=== PATIENT | female | born 1965 | race Caucasian/White ===

== ENCOUNTER 2016-09-12 20:27 | Emergency (ER) | payer OTHER ==
--- NOTE | 2016-09-12 21:29 | ED NURSING NOTES ---
Clinical Report - Nurses [facility] [place] [address] 09/12/2016 20:28 Patient: CONI BLANC TRIAGE Triage time 20:33. Acuity: LEVEL 5. Chief Complaint: (surgical wound check). KEM COMA SCORE: Kem Coma Scale: 15- eyes open spontaneously (4); best verbal response- oriented x 4 (5); best motor response- obeys commands (6). --20:43 Froilan Rivas R.N. 20:33 09/12/16. BP: 149/88. HR: 94. RR: 20 (unlabored). O2 saturation: 94% on room air. Temp: 98.8 F. Pain level now: 510. --20:43 Froilan Rivas R.N. Weight: 82.1 kg stated. Height/Length: 64 inches Per Patient. BMI: 31.1. --20:35 Froilan Rivas R.N. Medications Depakote Oral. Mirapex Oral. Tramadol HCL Oral. --20:37 Froilan Rivas R.N. Baclofen Oral. --20:38 Froilan Rivas R.N. Allergies ASA. Morphine Sulfate. PCN. --20:37 Froilan Rivas R.N. Sulfa Antibiotics. --20:38 Froilan Rivas R.N. History Arrived by private vehicle. Historian: patient. Accompanied by friend. Location of injuries: pelvis. This occurred today. ( pt states having umbilical hernia repair this AM, and is concerned about sanguineous drainage). PAST MEDICAL HX: Tetanus status: unknown. SOCIAL HX: History of drug use: marijuana. --20:43 Froilan Rivas R.N. PROBLEMS: Chronic Back Pain. Asthma. Restless Legs Syndrome. Fibromyalgia. Degenerative Joint Disease. --20:40 Froilan Rivas R.N. ADDITIONAL SURGERIES: Adenoidectomy. Back Surgery. Cholecystectomy. Hernia Repair. Tonsillectomy. Tubal Ligation. --20:40 Froilan Rivas R.N. Interventions ID and allergy band on patient. To treatment room. --20:43 Froilan Rivas R.N. PHYSICAL ASSESSMENT GENERAL / NEURO / PSYCH: Alert. Appears in no acute distress. RESPIRATORY: Respirations not labored. CVS: Capillary refill less than 2 seconds. GI / : Abdomen soft. ( pt has a closed umbilical surgical incision that she says came from a hernia repair performed this morning, its edges are currently approximated and scant drainage is present. bandage currently in place on surgical site. Patient repeated touching and caressing area.). EXTREMITIES: Extremities exhibit normal ROM. SKIN: Skin is warm and dry. --20:45 Froilan Rivas R.N. NURSING PROGRESS NOTES Bleeding controlled. Patient gowned. Reassurance given. Applied dressing consisting of 4x4 gauze. Secured with tape. GENERAL / NEURO / PSYCH: Alert. Oriented X 4. Two patient identifiers checked. Call light placed in reach. Side rails up x 1. Bed placed in lowest position. Brakes of bed on. Patient ready for evaluation- chart flagged. Patient waiting for evaluation. --20:46 Froilan Rivas R.N. Applied dressing consisting of Band-Aid and 4x4 gauze. --21:43 Glynn De Luna 21:45 09/12/2016 Percocet (Oxycodone-Acetaminophen) PO 5/325 mg Tablets 2 tab given. Allergies verified, confirmed 5 rights and sedative warning given to the patient and patient's brick wheeler. --21:49 Froilan Rivas R.N. DISPOSITION / DISCHARGE 21:45 09/12/16. RR: 18. Additional comments: pt alert and oriented, conversant and ambulates with difficulty. no change in pain from previous assessment. --21:51 Froilan Rivas R.N. ( dressings applied to wound by physician). --21:51 Froilan Rivas R.N. Condition at departure: stable. The goals identified in the patient's plan of care were met. No learning barriers present. Discharge instructions provided and reviewed with the patient. Reviewed warnings. Reviewed medication(s). Treatments reviewed. Reviewed referrals. Patient verbalized understanding. Written instructions provided in Nepali. The patient was discharged home and accompanied by brick wheeler. She left the Emergency Department ambulatory and via private vehicle. Eye Glass Frame Polisher driving. --21:52 Froilan Rivas R.N. Locked/Released at 09/12/2016 21:52 by Froilan Rivas R.N.
--- NOTE | 2016-09-12 21:29 | ED ORDER SUMMARY ---
..... Patient: CONI BLANC OrderSheet [facility] VisitID: [id number] [place] [address] 51y, F Registration Date/Time: 09/12/2016 ORDER SHEET Weight: 82.1 kg (stated) Allergies: ASA, Morphine Sulfate, PCN, Sulfa Antibiotics GENERAL ORDERS: Dress Wounds (gauze and bandaide) (21:29 09/12/2016 Torsten Smith) (21:42 SRedmond) MEDICATION ORDERS: Percocet PO 2 tabs (HIGH ALERT MEDICATION, NOW) (21:28 09/12/2016 Torsten Smith) (Cancelled: Physician Order21:44 Andrea Downing.NLeena) Percocet PO 10/650 mg (HIGH ALERT MEDICATION, NOW) (21:44 09/12/2016 Andrea Ocasio verbal order read back to Torsetn Smith) (21:49 Claribel ZavalaNLeena) IV FLUIDS: ORDER SHEET NOTES: [Electronically signed by Froilan Rivas R.N. (21:52 09/12/2016)] [Electronically signed by Arcadio Del Rosario Dr. (10:15 09/16/2016)] [Electronically locked/signed by Froilan Rivas R.N. (21:52 09/12/2016)]
--- NOTE | 2016-09-12 21:29 | ED NURSING NOTES ---
Clinical Report - Nurses [facility] [place] [address] 09/12/2016 20:28 Patient: CONI BLANC TRIAGE Triage time 20:33. Acuity: LEVEL 5. Chief Complaint: (surgical wound check). KEM COMA SCORE: Kem Coma Scale: 15- eyes open spontaneously (4); best verbal response- oriented x 4 (5); best motor response- obeys commands (6). --20:43 Froilan Rivas R.N. 20:33 09/12/16. BP: 149/88. HR: 94. RR: 20 (unlabored). O2 saturation: 94% on room air. Temp: 98.8 F. Pain level now: 510. --20:43 Froilan Rivas R.N. Weight: 82.1 kg stated. Height/Length: 64 inches Per Patient. BMI: 31.1. --20:35 Froilan Rivas R.N. Medications Depakote Oral. Mirapex Oral. Tramadol HCL Oral. --20:37 Froilan Rivas R.N. Baclofen Oral. --20:38 Froilan Rivas R.N. Allergies ASA. Morphine Sulfate. PCN. --20:37 Froilan Rivas R.N. Sulfa Antibiotics. --20:38 Froilan Rivas R.N. History Arrived by private vehicle. Historian: patient. Accompanied by friend. Location of injuries: pelvis. This occurred today. ( pt states having umbilical hernia repair this AM, and is concerned about sanguineous drainage). PAST MEDICAL HX: Tetanus status: unknown. SOCIAL HX: History of drug use: marijuana. --20:43 Froilan Rivas R.N. PROBLEMS: Chronic Back Pain. Asthma. Restless Legs Syndrome. Fibromyalgia. Degenerative Joint Disease. --20:40 Froilan Rivas R.N. ADDITIONAL SURGERIES: Adenoidectomy. Back Surgery. Cholecystectomy. Hernia Repair. Tonsillectomy. Tubal Ligation. --20:40 Froilan Rivas R.N. Interventions ID and allergy band on patient. To treatment room. --20:43 Froilan Rivas R.N. PHYSICAL ASSESSMENT GENERAL / NEURO / PSYCH: Alert. Appears in no acute distress. RESPIRATORY: Respirations not labored. CVS: Capillary refill less than 2 seconds. GI / : Abdomen soft. ( pt has a closed umbilical surgical incision that she says came from a hernia repair performed this morning, its edges are currently approximated and scant drainage is present. bandage currently in place on surgical site. Patient repeated touching and caressing area.). EXTREMITIES: Extremities exhibit normal ROM. SKIN: Skin is warm and dry. --20:45 Froilan Rivas R.N. NURSING PROGRESS NOTES Bleeding controlled. Patient gowned. Reassurance given. Applied dressing consisting of 4x4 gauze. Secured with tape. GENERAL / NEURO / PSYCH: Alert. Oriented X 4. Two patient identifiers checked. Call light placed in reach. Side rails up x 1. Bed placed in lowest position. Brakes of bed on. Patient ready for evaluation- chart flagged. Patient waiting for evaluation. --20:46 Froilan Rivas R.N. Applied dressing consisting of Band-Aid and 4x4 gauze. --21:43 Glynn De Luna 21:45 09/12/2016 Percocet (Oxycodone-Acetaminophen) PO 5/325 mg Tablets 2 tab given. Allergies verified, confirmed 5 rights and sedative warning given to the patient and patient's diesel powerplant mechanic helper. --21:49 Froilan Rivas R.N. DISPOSITION / DISCHARGE 21:45 09/12/16. RR: 18. Additional comments: pt alert and oriented, conversant and ambulates with difficulty. no change in pain from previous assessment. --21:51 Froilan Rivas R.N. ( dressings applied to wound by physician). --21:51 Froilan Rivas R.N. Condition at departure: stable. The goals identified in the patient's plan of care were met. No learning barriers present. Discharge instructions provided and reviewed with the patient. Reviewed warnings. Reviewed medication(s). Treatments reviewed. Reviewed referrals. Patient verbalized understanding. Written instructions provided in Ukrainian. The patient was discharged home and accompanied by diesel powerplant mechanic helper. She left the Emergency Department ambulatory and via private vehicle. Retail Advertising Executive driving. --21:52 Froilna Rivas R.N. Locked/Released at 09/12/2016 21:52 by Froilan Rivas R.N.
--- NOTE | 2016-09-12 21:29 | ED CLINICAL REPORT ---
Clinical Report - Physicians/Mid Levels [facility] [address] [place] [address] 09/12/2016 20:28 [id number] Time Seen: 20:30 Sep 12 2016. Arrived- By private vehicle. Historian- patient. HISTORY OF PRESENT ILLNESS Treated in emergency department (had elective cholecystectomy). Chief Complaint: RECHECK. The patient has experienced discharge since the procedure was performed (mild drainage from the wound. described as sero sang). Not previously treated in emergency department for laceration repair, Incision and Drainage of abscess or wound debridement. No prescription antibiotic given. Previous emergency department treatment: prescription given. (pain medication). (no fever or chills. No active bleeding. No increasing in pain. Has been passing flatus. No difficulty with urination.). REVIEW OF SYSTEMS No fever, nausea, vomiting, chest pain or difficulty breathing. All systems otherwise negative, except as recorded above. PAST HISTORY See nurses notes. Tetanus immunization status is up-to-date. Medications: Baclofen Oral. Depakote Oral. Mirapex Oral. Tramadol HCL Oral. Allergies: ASA. Morphine Sulfate. PCN. Sulfa Antibiotics. SOCIAL HISTORY Never smoker. History of occasional drug use: marijuana. No alcohol use. No recent travel. Is a local resident. ADDITIONAL NOTES The nursing notes have been reviewed. PHYSICAL EXAM Vital Signs: 09/12/2016 20:33 BP: 149/88. HR: 94. RR: 20. O2 saturation: 94%. Temp: 98.8 F. Pain level now: 5/10. Blood pressure normal. Oxygen saturation normal. Appearance: Alert. Oriented X3. No acute distress. Head: Head non-tender. No swelling of head. No Stuart's sign or raccoon eyes. Eyes: Pupils equal, round and reactive to light. EOM intact. Neck: Neck non-tender. Painless ROM. CVS: Heart sounds normal. Pulses normal. Respiratory: Breath sounds normal. Chest nontender. Abdomen: Soft. No organomegaly. (appropriately tender given recent surgery). Back: No tenderness. ROM normal. Skin: (Anterior abdominal wounds consistent with recent surgery. Wounds are clean dry and intact. No active bleeding. No evidence of infection. No crepitus. Tract tariq in the lower extremity bilaterally.). Extremities: Normal inspection. Extremities atraumatic. No lower extremity edema. Neuro, Vascular and Tendons: Sensation intact. No tendon injury. No vascular compromise. Neuro: Kem Coma Scale: 15- eyes open spontaneously (4); best verbal response- oriented x 3 (5); best motor response- obeys commands (6). No motor deficit. No sensory deficit. Reflexes normal. PROGRESS AND PROCEDURES Course of Care: the patient is a pleasant 51-year-old female presenting for evaluation of wound check. No signs of infection or wound dehiscence on examination. There was a concern from EMS about a patient that was injecting crushed up a lot of pills intravenously. Apparently patient had recent surgery performed. Appears to be consistent with the patient's appearance here in the emergency department as 30 minutes after he had received this call, the patient had checked into the emergency department. Tract tariq also noted in the lower extremities. Unclear if these are related however the coincidence is quite remarkable. Patient reports not having any pain medication as [facility] will not fill her prescription. Because the patient did have surgery recently, offered patient medications here in the emergency department. Do not feel comfortable with supplying patient with prescriptions for home use as the patient hard he does have prescribe narcotics. Expressed my concern with the findings on examination with the patient. Offered patient resources and help if she needs it. Patient states she will consider this. No signs of infection at this time. Vital signs are otherwise noted to be unremarkable. Do not feel patient requires further emergency department workup including laboratory studies or other interventions. Discussed the patient workup, diagnosis, home care, follow-up, and return precautions. All questions have been answered. The patient expressed understanding of these instructions and was agreeable to them. CLINICAL IMPRESSION Wound check (acute periumbilical). 09/12/2016 20:33 BP: 149/88. HR: 94. RR: 20. O2 saturation: 94%. Temp: 98.8 F. Pain level now: 5/10. Oxygen saturation normal. Essential hypertension. INSTRUCTIONS (Please take your medications as prescribed). Warnings: GENERAL WARNINGS: Return or contact your physician immediately if your condition worsens or changes unexpectedly, if not improving as expected, or if other problems arise. Specifically return if pain, vomiting, bleeding, breathing difficulty or fever. Your Current Medications: CONTINUE TAKING THE FOLLOWING MEDICATIONS: Baclofen Oral. Depakote Oral. Mirapex Oral. Tramadol HCL Oral. Follow-up: Return to the emergency department as needed. Follow up with your doctor as scheduled. Reason for referral: recheck today's concerns. Summary of care provided to patient via paper. Screening today revealed the patient's blood pressure to be in the normal range. The patient should follow up with a primary care provider for blood pressure management. Understanding of the discharge instructions verbalized by patient. (Electronically signed by Arcadio Del Rosario Dr. 09/16/2016 10:15)
--- NOTE | 2016-09-12 21:29 | ED ORDER SUMMARY ---
..... Patient: CONI BLANC OrderSheet [facility] VisitID: [id number] [place] [address] 51y, F Registration Date/Time: 09/12/2016 ORDER SHEET Weight: 82.1 kg (stated) Allergies: ASA, Morphine Sulfate, PCN, Sulfa Antibiotics GENERAL ORDERS: Dress Wounds (gauze and bandaide) (21:29 09/12/2016 Torsten Smith) (21:42 SRedmond) MEDICATION ORDERS: Percocet PO 2 tabs (HIGH ALERT MEDICATION, NOW) (21:28 09/12/2016 Torsten Smith) (Cancelled: Physician Order21:44 Andrea Downing.NLeena) Percocet PO 10/650 mg (HIGH ALERT MEDICATION, NOW) (21:44 09/12/2016 Andrea Ocasio verbal order read back to Torsten Smith) (21:49 Claribel ZavalaNLeena) IV FLUIDS: ORDER SHEET NOTES: [Electronically signed by Froilan Rivas R.N. (21:52 09/12/2016)] [Electronically signed by Arcadio Del Rosario Dr. (10:15 09/16/2016)] [Electronically locked/signed by Froilan Rivas R.N. (21:52 09/12/2016)]
--- NOTE | 2016-09-16 10:15 | ED MAR SUMMARY ---
..... Medication Administration Record [facility] [address] [place] [address] Patient: CONI BLANC Visit ID: [id number] 51y, F Weight: 82.1 kg Height/Length: 64 in BMI: 31.1 ALLERGIES: Sulfa Antibiotics, ASA, Morphine Sulfate, PCN Given 21:45 09/12/2016 Froilan Rivas R.N. Medication Administered: PERCOCET [PO] (OXYCODONE-ACETAMINOPHEN), Dose: 2 tab 5/325 mg Tablets PO. Medication Ordered: Percocet PO 10/650 mg (HIGH ALERT MEDICATION, NOW).
--- NOTE | 2016-09-16 10:15 | ED DISCHARGE INSTRUCTIONS ---
Patient: CONI BALNC General Instructions [facility] VisitID: [id number] [place] [address] 51y, F Registration Date/Time: 09/12/2016 Wound check (acute periumbilical). 09/12/2016 20:33 BP: 149/88. HR: 94. RR: 20. O2 saturation: 94%. Temp: 98.8 F. Pain level now: 5/10. Oxygen saturation normal. Essential hypertension. INSTRUCTIONS (Please take your medications as prescribed). Warnings: GENERAL WARNINGS: Return or contact your physician immediately if your condition worsens or changes unexpectedly, if not improving as expected, or if other problems arise. Specifically return if pain, vomiting, bleeding, breathing difficulty or fever. Your Current Medications: CONTINUE TAKING THE FOLLOWING MEDICATIONS: Baclofen Oral. Depakote Oral. Mirapex Oral. Tramadol HCL Oral. Follow-up: Return to the emergency department as needed. Follow up with your doctor as scheduled. Reason for referral: recheck today's concerns. Summary of care provided to patient via paper. Screening today revealed the patient's blood pressure to be in the normal range. The patient should follow up with a primary care provider for blood pressure management. Understanding of the discharge instructions verbalized by patient. ADDITIONAL INFORMATION Wound Check, No Infection Your laceration is healing as expected. There is no infection. Home care The following guidelines will help you care for your wound at home: Keep the wound clean and dry. If you were given a bandage, you may change it daily as follows: After removing the bandage, wash the area with soap and water. Use a wet cotton swab to loosen and remove any blood or crust that forms. After cleaning, apply a thin layer of antibiotic ointment. This will keep the wound clean and make it easier to remove the stitches. Reapply a fresh bandage. You may remove the bandage to shower as usual after the first 24 hours, but do not soak the area in water (no swimming) until the sutures are removed. If surgical tape was used, keep the area clean and dry. If it becomes wet, blot it dry with a towel. Follow-up care If sutures or marilin are in place, it is important to keep your appointment for removal. If they are left in place too long permanent tariq may remain. If surgical tape closures were applied, you may remove them yourself if they have not fallen of by 10 days after the injury. When to seek medical care Get prompt medical attention if any of the following occur: Increasing pain in the wound Redness, swelling, or pus coming from the wound Fever of 100.4F (38C) or higher, or as directed by your health care provider If sutures or amrilin come apart or fall out before your next appointment If the surgical tape closures fall off within seven days, or the wound edges re-open High Blood Pressure -- To Be Confirmed [No Tx] Your blood pressure was higher today than normal. Sometimes anxiety or pain can cause a temporary rise in blood pressure that later returns to normal. If your blood pressure is high on one measurement, this does not mean that you have hypertension (a chronic illness). However, you must have your blood pressure measured again within the next few days to find out if its still high. A normal blood pressure is 120/80 or less. The first (top) number is the "systolic" pressure. The second (bottom) number is the "diastolic" pressure. Hypertension exists when either the top number is 140 or higher, OR the bottom number is 90 or higher on repeated measurements. Blood pressure in the range of 120-140 (systolic) or 80-89 (diastolic) is considered "pre-hypertension". This means your are at risk for getting hypertension. You should have regular blood pressure checks to be sure your blood pressure is not rising. Home Care: Measure your blood pressure on 3 different days and write down the results. This can be done at your doctor's office or this facility. Some pharmacies and grocery stores offer automated blood pressure machines for your use. Follow Up: If your blood pressure is "high" (over 120/80) on 2 out of 3 days, you will need to follow up with your doctor for further evaluation and treatment. DO NOT PUT THIS OFF! Untreated high blood pressure increases the risk for heart attack, also known as acute myocardial infarction, or AMI, and stroke. It is a treatable condition. Get Prompt Medical Attention if any of the following occur: Chest pain or shortness of breath Severe headache Throbbing or rushing sound in the ears Nosebleed Sudden severe abdominal pain Extreme drowsiness, confusion or fainting Dizziness or vertigo (dizziness with spinning sensation) Weakness of an arm or leg or one side of the face Difficulty with speech or vision You have been given the following additional information: Wound Check, Lac F/U (No Infection) Hypertension, To Be Confirmed (Electronically signed by Arcadio Del Rosario Dr. 09/16/2016 10:15)
--- NOTE | 2016-09-16 10:15 | ED MED RECONCILIATION SUMMARY ---
Patient: CONI BLANC Medication Reconciliation Report [facility] VisitID: [id number] [address] [place] [address] 51y, F Registration Date/Time: 09/12/2016 Weight: 82.1 kg Height/Length: 64 in. BMI: 31.1 ALLERGIES: ASA, Morphine Sulfate, PCN, Sulfa Antibiotics The patient's Home Medications are listed below: CONTINUE TAKING THE FOLLOWING MEDICATIONS: Baclofen Oral Depakote Oral Mirapex Oral Tramadol HCL Oral The source(s) of the original Home Medication information: Not obtained. The following Medications were given to the patient in the Emergency Department: Percocet [PO] PO 2 tab, administered: 09/12/2016 9:45:00 PM The following Medications were prescribed to the patient: None.
--- NOTE | 2016-09-16 10:15 | ED MAR SUMMARY ---
..... Medication Administration Record [facility] [address] [place] [address] Patient: CONI BLANC Visit ID: [id number] 51y, F Weight: 82.1 kg Height/Length: 64 in BMI: 31.1 ALLERGIES: Sulfa Antibiotics, ASA, Morphine Sulfate, PCN Given 21:45 09/12/2016 Froilan Rivas R.N. Medication Administered: PERCOCET [PO] (OXYCODONE-ACETAMINOPHEN), Dose: 2 tab 5/325 mg Tablets PO. Medication Ordered: Percocet PO 10/650 mg (HIGH ALERT MEDICATION, NOW).
--- NOTE | 2016-09-16 10:15 | ED MED RECONCILIATION SUMMARY ---
Patient: CONI BLANC Medication Reconciliation Report [facility] VisitID: [id number] [address] [place] [address] 51y, F Registration Date/Time: 09/12/2016 Weight: 82.1 kg Height/Length: 64 in. BMI: 31.1 ALLERGIES: ASA, Morphine Sulfate, PCN, Sulfa Antibiotics The patient's Home Medications are listed below: CONTINUE TAKING THE FOLLOWING MEDICATIONS: Baclofen Oral Depakote Oral Mirapex Oral Tramadol HCL Oral The source(s) of the original Home Medication information: Not obtained. The following Medications were given to the patient in the Emergency Department: Percocet [PO] PO 2 tab, administered: 09/12/2016 9:45:00 PM The following Medications were prescribed to the patient: None.
== END 2016-09-12 21:47 | disposition home or self-care (01) ==
LOC: ED SRH 20:27
DX: K91.89 Other postprocedural complications and disorders of digestive system (principal); Z90.49 Acquired absence of other specified parts of digestive tract; I10 Essential (primary) hypertension; Z88.0 Allergy status to penicillin; Z88.2 Allergy status to sulfonamides; Z88.5 Allergy status to narcotic agent; Z79.899 Other long term (current) drug therapy

== ENCOUNTER 2016-09-22 22:15 | Emergency (ER) | payer OTHER ==
--- NOTE | 2016-09-22 22:50 | ED ORDER SUMMARY ---
..... Patient: CONI BLANC OrderSheet [facility] VisitID: [id number] [address] [place] [address] 51y, F Registration Date/Time: 09/22/2016 ORDER SHEET Weight: 81.6 kg (stated) Allergies: ASA, Morphine Sulfate, PCN, Sulfa Antibiotics GENERAL ORDERS: Dress Wounds (22:44 09/22/2016 Torsten Smith) (Ack 22:45 HSoule) (22:56 HSoule) MEDICATION ORDERS: Promethazine PO 25 mg (HIGH ALERT MEDICATION, NOW) (22:43 09/22/2016 Torsten Smith) (Ack 22:45 HSoule) (22:56 HSoule) IV FLUIDS: ORDER SHEET NOTES: [Electronically signed by Candis Guerra (:09/23/2016)] [Electronically signed by Arcadio Del Rosario Dr. (09:11 09/29/2016)] [Electronically locked/signed by Candis Guerra (09/23/2016)]
--- NOTE | 2016-09-22 22:50 | ED NURSING NOTES ---
Clinical Report - Nurses [facility] [address] [place] [address] 09/22/2016 22:16 Patient: CONI BLANC TRIAGE Triage time 22:Sep 22 2016. Acuity: LEVEL 3. Chief Complaint: (Post operative wound complication, nausea). SEPSIS SCREEN: Sepsis Screen: negative. Negative (no infection suspected/documented). KEM COMA SCORE: Kem Coma Scale: 15- eyes open spontaneously (4); best verbal response- oriented x 4 (5); best motor response- obeys commands (6). --22:28 Candis Guerra 22:20 09/22/16. BP: 161/110. HR: 88. RR: 20. O2 saturation: 100% on room air. Temp: 99.2 F (oral). Pain level now: 08/09. --22:28 Candis Guerra. Weight: 81.6 kg stated. Height/Length: 64 inches Per Patient. BMI: 30.9. --22:25 Candis Guerra. Medications Baclofen Oral. Depakote Oral. Mirapex Oral. Tramadol HCL Oral. --22:21 Candis Guerra Dilaudid Oral (Tablet 2 mg), as needed. --22:29 Candis Guerra Promethazine HCl Oral. --22:29 Candis Guerra. Medication/allergy information source: the patient. --22:28 Candis Guerra. Allergies ASA. Morphine Sulfate. PCN. --22:21 Candis Guerra Sulfa Antibiotics. --22:21 Candis Guerra. History Arrived by private vehicle. Historian: patient. Accompanied by friend. Primary physician (Teagan mejía). ( Patient reports she had surgery on the for a umbilical hernia repair. She reports she came in over the weekend because the wound was opening. She states that she was discharged from here. She reports that last weekend she began to have some opening of the wound. She reports that drainage has been mostly clear. She denies fever. She reports vomiting which is relatively normal for her but states it has increased over the last few days and she is out of nausea meds.). PAST MEDICAL HX: Immunizations: up-to-date. Last normal menstrual period- 10 years ago. SOCIAL HX: Never smoker. History of drug use: marijuana. No alcohol use. No infectious disease exposure. ABUSE ASSESSMENT: No report of abuse. FALL RISK ASSESSMENT: Fall risk assessment completed. No fall risk identified. NUTRITIONAL RISK ASSESSMENT: The nutritional risk assessment revealed no deficiencies. FUNCTIONAL ASSESSMENT: Functional assessment: no impairments noted. LEARNING NEEDS ASSESSMENT: The learning needs assessment revealed no barriers. SKIN INTEGRITY ASSESSMENT: Skin integrity risk assessment completed. No skin integrity risk identified. --22:28 aCndis Guerra. PROBLEMS: Hypertension. Wound Check. Chronic Back Pain. Asthma. Restless Legs Syndrome. Fibromyalgia. Degenerative Joint Disease. --22:21 Candis Guerra. ADDITIONAL SURGERIES: Adenoidectomy. Back Surgery. Cholecystectomy. Hernia Repair. Tonsillectomy. Tubal Ligation. --22:21 Candis Guerra. Interventions ID band on patient. To treatment room. --22:28 Candis Guerra. PHYSICAL ASSESSMENT Ambulatory to room. GENERAL / NEURO / PSYCH: Alert. Oriented X 4. Appears in no acute distress. HEENT: Mucous membranes are pink. RESPIRATORY: Respirations not labored. CVS: Normal sinus rhythm noted. GI / : Abdomen soft and nontender. SKIN: Skin is warm and dry. ( Surgical incision noted in the umbilicus, scant serous drainage noted. Mild dehiscinance of the wound.). --22:31 Candis Guerra. NURSING PROGRESS NOTES 22:31 09/22/16. Monitoring of patient in place. Reassurance given to the patient. Two patient identifiers checked. Call light placed in reach. Side rails up x 1. Bed placed in lowest position. Brakes of bed on. Patient ready for evaluation- chart flagged and ED physician notified. --22:31 Candis Guerra 22:56 09/22/2016 Promethazine PO Tablets 25 mg given. Allergies verified, confirmed 5 rights and sedative warning given to the patient and patient's family. --22:56 Candis Guerra. DISPOSITION / DISCHARGE 22:58 09/22/16. Condition at departure: stable. The goals identified in the patient's plan of care were met. No learning barriers present. Discharge instructions provided and reviewed with the patient and spouse. Reviewed medication(s) side effects, precautions, dosing and course information. Prescription(s) given to the patient. Reviewed wound care instructions. Patient and spouse verbalized understanding. Written instructions provided in Bur[place]ian. ( Follow up with your PCP in three days. Return if symptoms worsen. Watch for purulent drainage, fever and redness.). The patient was discharged by the physician. She was discharged home and accompanied by spouse. She left the Emergency Department ambulatory and via private vehicle. Spouse driving. ( Provider notified of vitals, patient cleared for discharge). FALL RISK ASSESSMENT: Fall risk assessment completed. No fall risk identified. --22:58 Candis Guerra 22:56 09/22/16. BP: 172/92. HR: 70. RR: 20. O2 saturation: 99% on room air. Temp: 99 F (oral). Pain level now: 0/10. --22:58 Candis Guerra. Locked/Released at 09/23/2016 1:27 by Candis Guerra,
--- NOTE | 2016-09-22 22:50 | ED ORDER SUMMARY ---
..... Patient: CONI BLANC OrderSheet [facility] VisitID: [id number] [address] [place] [address] 51y, F Registration Date/Time: 09/22/2016 ORDER SHEET Weight: 81.6 kg (stated) Allergies: ASA, Morphine Sulfate, PCN, Sulfa Antibiotics GENERAL ORDERS: Dress Wounds (22:44 09/22/2016 Torsten Smith) (Ack 22:45 HSoule) (22:56 HSoule) MEDICATION ORDERS: Promethazine PO 25 mg (HIGH ALERT MEDICATION, NOW) (22:43 09/22/2016 Torsten Smith) (Ack 22:45 HSoule) (22:56 HSoule) IV FLUIDS: ORDER SHEET NOTES: [Electronically signed by Candis Guerra (:09/23/2016)] [Electronically signed by Arcadio Del Rosario Dr. (09:11 09/29/2016)] [Electronically locked/signed by Candis Guerra (09/23/2016)]
--- NOTE | 2016-09-22 22:50 | ED CLINICAL REPORT ---
Clinical Report - Physicians/Mid Levels [facility] [address] [place] [address] 09/22/2016 22:16 Patient: CONI BLANC Time Seen: 2235. Arrived- By private vehicle. Historian- patient. HISTORY OF PRESENT ILLNESS Treated in emergency department (several days ago). Chief Complaint: WOUND RECHECK. The patient has experienced since the procedure was performed (wound on abdomen has opened up slightly. serosang drainage described). Previous emergency department treatment: (wound check). No prescription given. (n/a). (States she ran out of nausea medications too which is her main reason for being here. States there was a "mix up" with her insurance/doctor on the latest prescription. States this always happens when she runs out of her medications. + flatus and BM recently. No new/different abdominal pain. Only the discomfort associated with recent surgery. Tolerating PO at home well.). REVIEW OF SYSTEMS No fever, weakness, chest pain or difficulty breathing. She has had nausea. no urinary symptoms. All systems otherwise negative, except as recorded above. PAST HISTORY See nurses notes. Tetanus immunization status is up-to-date. Medications: Promethazine HCl Oral. Dilaudid Oral (Tablet 2 mg), as needed. Baclofen Oral. Depakote Oral. Mirapex Oral. Tramadol HCL Oral. Allergies: ASA. Morphine Sulfate. PCN. Sulfa Antibiotics. SOCIAL HISTORY Never smoker. History of drug use: marijuana. No alcohol use. No recent travel. Is a local resident. ADDITIONAL NOTES The nursing notes have been reviewed. PHYSICAL EXAM Vital Signs: 09/22/2016 22:20 BP: 161/110. HR: 88. RR: 20. O2 saturation: 100%. Temp: 99.2 F. Pain level now: 2/10. Blood pressure normal. Oxygen saturation normal. Appearance: Alert. Oriented X3. No acute distress. Head: Head non-tender. No swelling of head. CVS: Heart sounds normal. Pulses normal. Respiratory: Breath sounds normal. Chest nontender. Abdomen: Soft and nontender. No organomegaly. Skin: Healing wound. No infection. No ruptured blister. No skin rash. (ecchymosis resolving to the anterior abdomen below the umbilicus. Wound is c/d/i. superficial layer may be however there is no deeper tracking wounds.). Extremities: Normal inspection. Extremities atraumatic. No lower extremity edema. (lower extremity track tariq. no signs of infection.). Neuro, Vascular and Tendons: Sensation intact. No tendon injury. No vascular compromise. PROGRESS AND PROCEDURES Course of Care: Patient is a pleasant 51 yo female with recent surgery. Wound appears to be healing well. Please see last note dictated by me on her last ED visit. Nausea medications provided. Wound checked and redressed. NO signs of dehis or infection. Nausea medications provided. Patient reports having adequate pain medications at home. No further treatment/work up needed at this time. Nausea is the same as prior episodes of nausea. No signs of abdominal tenderness. Do not feel labs or imaging would be helpful at this time. Discussed with patient diagnosis and plan of care. All question answered. Return precautions and wound infection precautions provided. Disposition: Discharged. Condition: good. CLINICAL IMPRESSION Wound check (acute). 09/22/2016 22:20 BP: 161/110. HR: 88. RR: 20. O2 saturation: 100%. Temp: 99.2 F. Pain level now: 2/10. Moderate nausea with vomiting (acute). Hypertensive. Oxygen saturation normal. Essential hypertension. INSTRUCTIONS Warnings: GENERAL WARNINGS: Return or contact your physician immediately if your condition worsens or changes unexpectedly, if not improving as expected, or if other problems arise. Specifically return if pain, vomiting, bleeding, breathing difficulty or fever. Your Current Medications: CONTINUE TAKING THE FOLLOWING MEDICATIONS: Baclofen Oral. Depakote Oral. Dilaudid Oral : Tablet 2 mg, prn. Mirapex Oral. Promethazine HCl Oral. Tramadol HCL Oral. Prescription Medications: Promethazine Tablets 25 mg: take 1 tablet orally every 6 hours as needed for nausea and vomiting. Dispense twenty (20). No refill. Follow-up: Return to the emergency department as needed. Follow up with your doctor. Screening today revealed the patient's blood pressure to be in the hypertensive range. The patient should follow up with a primary care provider for blood pressure management. Understanding of the discharge instructions verbalized by patient. (Electronically signed by Arcadio Del Rosario Dr. 09/29/2016 9:11)
--- NOTE | 2016-09-29 09:12 | ED MAR SUMMARY ---
..... Medication Administration Record [facility] [address] [place] [address] Patient: CONI BLANC Visit ID: [id number] 51y, F Weight: 81.6 kg Height/Length: 64 in BMI: 30.9 ALLERGIES: ASA, Morphine Sulfate, PCN, Sulfa Antibiotics Given 22:56 09/22/2016 Candis Guerra, Medication Administered: PROMETHAZINE [PO], Dose: 25 mg Tablets PO. Medication Ordered: Promethazine PO 25 mg (HIGH ALERT MEDICATION, NOW).
--- NOTE | 2016-09-29 09:12 | ED DISCHARGE INSTRUCTIONS ---
Patient: CONI BLANC General Instructions [facility] VisitID: [id number] [place] [address] 51y, F Registration Date/Time: 09/22/2016 Wound check (acute). 09/22/2016 22:20 BP: 161/110. HR: 88. RR: 20. O2 saturation: 100%. Temp: 99.2 F. Pain level now: 2/10. Moderate nausea with vomiting (acute). Hypertensive. Oxygen saturation normal. Essential hypertension. INSTRUCTIONS Warnings: GENERAL WARNINGS: Return or contact your physician immediately if your condition worsens or changes unexpectedly, if not improving as expected, or if other problems arise. Specifically return if pain, vomiting, bleeding, breathing difficulty or fever. Your Current Medications: CONTINUE TAKING THE FOLLOWING MEDICATIONS: Baclofen Oral. Depakote Oral. Dilaudid Oral : Tablet 2 mg, prn. Mirapex Oral. Promethazine HCl Oral. Tramadol HCL Oral. Prescription Medications: Promethazine Tablets 25 mg: take 1 tablet orally every 6 hours as needed for nausea and vomiting. Dispense twenty (20). No refill. Follow-up: Return to the emergency department as needed. Follow up with your doctor. Screening today revealed the patient's blood pressure to be in the hypertensive range. The patient should follow up with a primary care provider for blood pressure management. Understanding of the discharge instructions verbalized by patient. ADDITIONAL INFORMATION Wound Check, No Infection Your laceration is healing as expected. There is no infection. Home care The following guidelines will help you care for your wound at home: Keep the wound clean and dry. If you were given a bandage, you may change it daily as follows: After removing the bandage, wash the area with soap and water. Use a wet cotton swab to loosen and remove any blood or crust that forms. After cleaning, apply a thin layer of antibiotic ointment. This will keep the wound clean and make it easier to remove the stitches. Reapply a fresh bandage. You may remove the bandage to shower as usual after the first 24 hours, but do not soak the area in water (no swimming) until the sutures are removed. If surgical tape was used, keep the area clean and dry. If it becomes wet, blot it dry with a towel. Follow-up care If sutures or marilin are in place, it is important to keep your appointment for removal. If they are left in place too long permanent tariq may remain. If surgical tape closures were applied, you may remove them yourself if they have not fallen of by 10 days after the injury. When to seek medical care Get prompt medical attention if any of the following occur: Increasing pain in the wound Redness, swelling, or pus coming from the wound Fever of 100.4F (38C) or higher, or as directed by your health care provider If sutures or marilin come apart or fall out before your next appointment If the surgical tape closures fall off within seven days, or the wound edges re-open High Blood Pressure --Established High Blood Pressure (Hypertension) is a chronic disease. The cause is unknown in most cases. It can usually be controlled with lifestyle changes and/or medicines. Symptoms of high blood pressure may include headache, dizziness, visual changes, chest pain and shortness of breath. Sometimes it causes no symptoms at all. However, even if there are no symptoms, untreated high blood pressure increases the risk of heart attack, also known as acute myocardial infarction, or AMI, and stroke. It is a serious health risk and should not be ignored. A normal blood pressure is 120/80 or less. The first (top) number is the "systolic" pressure. The second (bottom) number is the "diastolic" pressure. Hypertension exists when either the top number is 140 or higher, OR the bottom number is 90 or higher on repeated measurements. Home Care: All patients with high blood pressure should do the following to lower their pressure. If you are on medicines, then these methods may reduce or eliminate your need for medicines in the future. Begin a weight loss program if you are overweight. Reduce your salt intake. Avoid high salt foods (olives, pickles, smoked meats, salted potato chips, etc.). Do not add salt to your food at the table. Use only small amounts of salt when cooking. Begin an exercise program. Discuss with your doctor what type of exercise program would be best for you. It doesn't have to be difficult. Even brisk walking for 20 minutes three times a week is a good form of exercise. Avoid medicines which contain heart stimulants. This includes many cold and sinus decongestant pills and sprays as well as diet pills. Check the warnings about hypertension on the label. Stimulants such as amphetamine or cocaine could be lethal for someone with hypertension. Never take these. Limit your caffeine intake or switch to caffeine-free products. Stop smoking. If you are a long-time smoker, this can be hard. Enroll in a stop-smoking program to improve your chance of success. Learning how to handle stress better is an important part of any program to lower blood pressure. Learn about relaxation methods such as meditation, yoga or biofeedback. If medicines were prescribed, take them exactly as directed. Missing doses may cause your blood pressure get out of control. Consider buying an automatic blood pressure machine (available at most pharmacies). Use this to monitor your blood pressure at home and report the results to your doctor. Follow Up: Regular visits to your own physician for blood pressure checks and medicine adjustment is an important part of your care. Make a follow-up appointment as directed by our staff. Get Prompt Medical Attention if any of the following occur: Chest pain or shortness of breath Severe headache Throbbing or rushing sound in the ears Nosebleed Sudden severe abdominal pain Extreme drowsiness, confusion or fainting Dizziness or vertigo (dizziness with spinning sensation) Weakness of an arm or leg or one side of the face Difficulty with speech or vision Promethazine Hydrochloride Oral tablet What is this medicine? PROMETHAZINE (proe METH a zeen) is an antihistamine. It is used to treat allergic reactions and to treat or prevent nausea and vomiting from illness or motion sickness. It is also used to make you sleep before surgery, and to help treat pain or nausea after surgery. How should I use this medicine? Take this medicine by mouth with a glass of water. Follow the directions on the prescription label. Take your doses at regular intervals. Do not take your medicine more often than directed. Talk to your mental health consultant regarding the use of this medicine in children. Special care may be needed. This medicine should not be given to infants and children younger than 2 years old. What side effects may I notice from receiving this medicine? Side effects that you should report to your doctor or health career based intervention coordinator as soon as possible: blurred vision irregular heartbeat, palpitations or chest pain muscle or facial twitches pain or difficulty passing urine seizures skin rash slowed or shallow breathing unusual bleeding or bruising yellowing of the eyes or skin Side effects that usually do not require medical attention (report to your doctor or health career based intervention coordinator if they continue or are bothersome): headache nightmares, agitation, nervousness, excitability, not able to sleep (these are more likely in children) stuffy nose What may interact with this medicine? Do not take this medicine with any of the following medications: medicines called MAO Inhibitors like Nardil, Parnate, Marplan, Eldepryl other phenothiazines like trimethobenzamide This medicine may also interact with the following medications: barbiturates like phenobarbital bromocriptine certain antidepressants certain antihistamines used in allergy or cold medicines epinephrine levodopa medicines for sleep medicines for mental problems and psychotic disturbances medicines for movement abnormalities as in Parkinson's disease, or for gastrointestinal problems muscle relaxants prescription pain medicines What if I miss a dose? If you miss a dose, take it as soon as you can. If it is almost time for your next dose, take only that dose. Do not take double or extra doses. Where should I keep my medicine? Keep out of the reach of children. Store at room temperature, between 20 and 25 degrees C (68 and 77 degrees F). Protect from light. Throw away any unused medicine after the expiration date. What should I tell my health care provider before I take this medicine? They need to know if you have any of these conditions: glaucoma high blood pressure or heart disease kidney disease liver disease lung or breathing disease, like asthma prostate trouble pain or difficulty passing urine seizures an unusual or allergic reaction to promethazine or phenothiazines, other medicines, foods, dyes, or preservatives or trying to get breast-feeding What should I watch for while using this medicine? Tell your doctor or health career based intervention coordinator if your symptoms do not start to get better in 1 to 2 days. You may get drowsy or dizzy. Do not drive, use machinery, or do anything that needs mental alertness until you know how this medicine affects you. To reduce the risk of dizzy or fainting spells, do not stand or sit up quickly, especially if you are an older patient. Alcohol may increase dizziness and drowsiness. Avoid alcoholic drinks. Your mouth may get dry. Chewing sugarless gum or sucking hard candy, and drinking plenty of water may help. Contact your doctor if the problem does not go away or is severe. This medicine may cause dry eyes and blurred vision. If you wear contact lenses you may feel some discomfort. Lubricating drops may help. See your eye doctor if the problem does not go away or is severe. This medicine can make you more sensitive to the sun. Keep out of the sun. If you cannot avoid being in the sun, wear protective clothing and use sunscreen. Do not use sun lamps or tanning beds/booths. If you are diabetic, check your blood-sugar levels regularly. You have been given the following additional information: Wound Check, Lac F/U (No Infection) Hypertension, Established Promethazine Hydrochloride Oral tablet (Electronically signed by Arcadio Del Rosario Dr. 09/29/2016 9:11)
--- NOTE | 2016-09-29 09:12 | ED MED RECONCILIATION SUMMARY ---
Patient: CONI BLANC Medication Reconciliation Report [facility] VisitID: [id number] [address] [place] [address] 51y, F Registration Date/Time: 09/22/2016 Weight: 81.6 kg Height/Length: 64 in. BMI: 30.9 ALLERGIES: ASA, Morphine Sulfate, PCN, Sulfa Antibiotics The patient's Home Medications are listed below: CONTINUE TAKING THE FOLLOWING MEDICATIONS: Baclofen Oral Depakote Oral Dilaudid Oral (2 mg) Mirapex Oral Promethazine HCl Oral Tramadol HCL Oral The source(s) of the original Home Medication information: patient The following Medications were given to the patient in the Emergency Department: Promethazine [PO] PO 25 mg, administered: 09/22/2016 10:56:00 PM The following Medications were prescribed to the patient: Promethazine Tablets 25 mg: take 1 tablet orally every 6 hours as needed for nausea and vomiting. Dispense twenty (20). No refill. -- Arcadio Del Rosario Dr.
--- NOTE | 2016-09-29 09:12 | ED MAR SUMMARY ---
..... Medication Administration Record [facility] [address] [place] [address] Patient: CONI BLANC Visit ID: [id number] 51y, F Weight: 81.6 kg Height/Length: 64 in BMI: 30.9 ALLERGIES: ASA, Morphine Sulfate, PCN, Sulfa Antibiotics Given 22:56 09/22/2016 Candis Guerra, Medication Administered: PROMETHAZINE [PO], Dose: 25 mg Tablets PO. Medication Ordered: Promethazine PO 25 mg (HIGH ALERT MEDICATION, NOW).
--- NOTE | 2016-09-29 09:12 | ED MED RECONCILIATION SUMMARY ---
Patient: CONI BLANC Medication Reconciliation Report [facility] VisitID: [id number] [address] [place] [address] 51y, F Registration Date/Time: 09/22/2016 Weight: 81.6 kg Height/Length: 64 in. BMI: 30.9 ALLERGIES: ASA, Morphine Sulfate, PCN, Sulfa Antibiotics The patient's Home Medications are listed below: CONTINUE TAKING THE FOLLOWING MEDICATIONS: Baclofen Oral Depakote Oral Dilaudid Oral (2 mg) Mirapex Oral Promethazine HCl Oral Tramadol HCL Oral The source(s) of the original Home Medication information: patient The following Medications were given to the patient in the Emergency Department: Promethazine [PO] PO 25 mg, administered: 09/22/2016 10:56:00 PM The following Medications were prescribed to the patient: Promethazine Tablets 25 mg: take 1 tablet orally every 6 hours as needed for nausea and vomiting. Dispense twenty (20). No refill. -- Arcadio Del Rosario Dr.
== END 2016-09-22 23:00 | disposition home or self-care (01) ==
LOC: ED SRH 22:15
DX: R11.2 Nausea with vomiting, unspecified (principal); Z48.01 Encounter for change or removal of surgical wound dressing; I10 Essential (primary) hypertension; Z88.0 Allergy status to penicillin; Z88.2 Allergy status to sulfonamides; Z88.5 Allergy status to narcotic agent